=== PATIENT | female | born 1960 ===

== ENCOUNTER 2017-05-31 08:31 | Day surgery (SDC) | payer MEDICAID ==
[2017-05-31] MEDS ORDERED: Lactated Ringer's 1,000 ML IV ONE (08:52)
[2017-05-31 11:16] VITALS: PULSE 68
[2017-05-31] MEDS ORDERED: Midazolam 2 MG/2 ML VIAL ONE (11:17)
[2017-05-31] MEDS ORDERED: Propofol 10 mg/ml Inj (20 ML) ONE (11:17)
[2017-05-31 12:54] VITALS: BP 114/71; RESP 14; TEMP 97.7; O2SAT 99
== END 2017-05-31 13:03 | disposition home or self-care (01) ==
LOC: H.ENDO 08:31
PROVIDERS: ATTEND Internal Medicine Gastroenterology
DX: Z12.11 Encounter for screening for malignant neoplasm of colon (principal); I10 Essential (primary) hypertension; K64.8 Other hemorrhoids
CPT/HCPCS: 45378; J2250; J2704; J7120